=== PATIENT | female | born 2000 | race Caucasian/White ===

== ENCOUNTER 2021-12-27 06:51 | Day surgery (SDC) | payer BC, OTHER ==
[2021-12-27] MEDS ORDERED: Ringers Lactate 1,000 ML IV ONE (07:09)
[2021-12-27] MEDS ORDERED: OXYMETAZOLINE HCL 0.05% 15ML NAS ONE (07:13)
[2021-12-27] MEDS ORDERED: ACETAMINOPHEN 500 MG TAB ONE (07:31)
[2021-12-27] MEDS ORDERED: CELECOXIB 100 MG CAPSULE ONE (07:32)
[2021-12-27] MEDS ORDERED: dexAMETHasone 10 MG/ML VIAL ONE (07:43)
[2021-12-27] MEDS ORDERED: propofoL 200 MG/20 ML VIAL IV ONE (07:43)
[2021-12-27] MEDS ORDERED: LIDOCAINE 2% MPF 5 ML VIAL ONE (07:43)
[2021-12-27] MEDS ORDERED: FENTANYL CITR 100 MCG/2 ML ONE (07:43)
[2021-12-27] MEDS ORDERED: ONDANSETRON 4 MG/2 ML VIAL ONE (07:44)
[2021-12-27] MEDS ORDERED: KETOROLAC 30 MG/ML INJ ONE (07:44)
[2021-12-27] MEDS ORDERED: MIDAZOLAM HCL 2 MG/2 ML INJ ONE (07:44)
[2021-12-27 07:56] VITALS: O2SAT 100
[2021-12-27] MEDS: OFLOXACIN OPH 0.3%-5 ML BTL ONE ×2 (08:34→08:56)
[2021-12-27] MEDS ORDERED: MEPERIDINE HCL 25 MG/ML SYR ONE (09:32)
[2021-12-27 11:25] VITALS: BP 90/68; TEMP 96.5
--- NOTE | 2021-12-28 00:10 | OP ---
Date of Procedure: 12/27/2021 Surgeon: ANY VEGA Preoperative Diagnoses: 1.Chronic right ear otalgia. 2.Chronic right ear tinnitus. 3.Possible retained tympanostomy tube, involving right middle ear space. Postoperative Diagnoses: 1.Chronic right ear otalgia. 2.Chronic right ear tinnitus. 3.Possible retained tympanostomy tube, involving right middle ear space. Procedure: 1.Bilateral ear exam under general anesthesia with binocular microscopy. 2.Right myringotomy with middle ear exploration for retained tympanostomy tube. 3.Tympanic membrane repair with Gel-Foam patch. Anesthesia: General LMA anesthesia was administered. Specimens: None. Estimated Blood Loss: Scant, less than 1 mL. Findings: Moderate scarring, left tympanic membrane; moderate scarring, right tympanic membrane with no evidence of retained tympanostomy tube. Complications: None. Disposition: Stable. The patient tolerated the procedure well. Indication For Procedure: Patient is a pleasant 21-year-old female who presented to my office with a clicking and fluttering noise in the right ear that she has had for multiple months. She stated chucky t at 1 time, she had a tympanostomy tube placed and they told her that it fell into the middle ear sp marcela. Exam in the office revealed possible retained tympanostomy tube, but unable to ascertain 100% i f that was what we were visualizing. These were indications to bring the patient to operative suite for the above-mentioned procedures. She understood. All questions were answered. Risks versus bene fits and complications explained in detail and a consent form was signed, was placed in the chart. Description Of Procedure: Patient was transferred from the preoperative holding area to the operativ e suite by Department of Anesthesia, placed on the operating table supine, sedated, and an LMA was pl aced. A Zeiss microscope with auto-focus/zoom lens was utilized to examine the ears and perform the procedures. A 5 mm ear speculum was placed in the lateral end of the left ear canal and the canal wa s pink, firm without discharge and the ear drum demonstrated moderate scarring, most likely from prio r ear procedures. Patient has had multiple tympanostomy tubes placed as a child. I then removed the speculum and placed into the lateral ends of the right ear canal. The canal was pink, firm without discharge and the right ear drum demonstrated moderate scarring which was making visualization of the middle ear space difficult. Thus, I used a myringotomy knife to place 2 incisions in different areas of the eardrum, so that I could visualize into the middle ear cavity to see if I could see a retaine d tympanostomy tube. After exploring for approximately 10 to 15 minutes, I could not find any tympan ostomy tube. I also inserted a small #3 Pimentel suction into the middle ear cavity and there was tympa nostomy tube that was bit suctioned utilizing the suction. It was my thought at this point that eith er the scar tissue could be causing this noise or she could possibly have a stapedial or tensor tympa ni myoclonus, causing the fluttering sound. It was at this point that I decided to place Gel-Foam pa tches over both myringotomy sites and then I placed a small amount of Gel-Foam packing on top of thos e patches and then instilled approximately 4 to 5 drops of ofloxacin drops into the right ear canal a nd she was transferred back to Department of Anesthesia in stable condition. She will be discharged home on antibiotic ear drops to use twice daily and will follow up in 1 to 2 weeks or sooner if cici stock. JOANIE/BRIE Voice ID: [id number] Report ID: [id number]
== END 2021-12-27 10:24 | disposition home or self-care (01) ==
LOC: OR 06:51
PROVIDERS: ATTEND Otolaryngology Facial Plastic Surgery
PROC: 09P770Z Removal of Drainage Device from Right Tympanic Membrane, Via Natural or Artificial Opening (ICD-10-PCS; 2021-12-27)
PROC: 09P770Z Removal of Drainage Device from Right Tympanic Membrane, Via Natural or Artificial Opening (ICD-10-PCS; principal; 2021-12-27 08:30)
DX: H92.01 Otalgia, right ear (principal); H93.11 Tinnitus, right ear; Z20.822 Contact with and (suspected) exposure to COVID-19
CPT/HCPCS: 69610; 69440; U0003; J2704; J2250; J3010; J1100; J2175; J7120; J2405

== ENCOUNTER 2024-08-03 23:09 | Emergency (ER) | payer BC, OTHER ==
[2024-08-04] MEDS ORDERED: ONDANSETRON 4 MG/2 ML VIAL ONE (00:01)
[2024-08-04] MEDS ORDERED: NA CHLORIDE 0.9% 1,000 ML ONE (00:01)
[2024-08-04 00:38] LABS: Absolute Monocytes 0.2 K/uL (0.1-1.3); Absolute Neutrophil 1.9 K/uL (1.8-8.0); Basophils % 0.5 % (0-1.3); Eosinophils % 0.3 % (0-4.4); Hematocrit 35.2 % (36.0-45.0); Hemoglobin 11.7 g/dL (12.0-15.0); Lymphocytes % 31.5 % (15.3-44.8); MCH 29.4 pg (27.0-35.0); MCHC 33.4 g/dL (32.0-36.0); MCV 87.9 fL (80-100); MPV 9.8 fL (7.6-11.3); Monocytes % 5.6 % (3.3-12.3); Neutrophils % 62.1 % (41.7-73.7); Nucleated Red Blood Cells % 0.2 % (0-0); Platelets 152 thou/uL (152-406)
[2024-08-04] MEDS ORDERED: KETOROLAC 30 MG/ML INJ ONE (00:50)
[2024-08-04 00:56] LABS: SARS-CoV-2 Antigen CONTROL BLUE LINE VIS/BG OK; SARS-CoV-2 Antigen Rapid Res Negative (Negative)
[2024-08-04 00:58] LABS: Anion Gap 10.5 mEq/L (5.0-15.0); Potassium 3.5 mEq/L (3.5-5.1)
[2024-08-04] MEDS ORDERED: PROMETHAZINE INJ 25 MG/ML AMP ONE (01:10)
--- NOTE | 2024-08-04 01:19 | EDPHYS ---
Physician Documentation [facility] Name: Yamile Torres Age: 24 yrs Sex: Female : 2000 Arrival Date: 08/03/2024 Time: 23:09 Bed 8 Private MD: ED Physician Ranulfo Watson HPI: 08/03 23:33 This 24 yrs old Female presents to ER via Ambulatory with complaints of Flu Symptoms. sb4 23:33 flu like symptoms x 3 days. has been taking OTC meds without relief. reports cough, sb4 chest congestion, chest pain, nausea, vomiting. denies . endorses fever and chills. 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 Patient has never been vaccinated. - Infectious Disease History:: Denies. - Social history:: Smoking status: Patient denies any tobacco usage or history of. Patient uses alcohol, occasionally. ROS: 23:33 Cardiovascular: Negative for chest pain, palpitations, and edema, sb4 23:33 Constitutional: Positive for chills, fever, malaise, 23:33 Respiratory: Positive for cough, 23:33 Abdomen/GI: Positive for nausea and vomiting, 23:33 All other systems are negative, Exam: 23:33 Head/Face: Normocephalic, atraumatic. Eyes: Extra-ocular motions intact. Periorbital sb4 areas with no swelling, redness, or edema. ENT: Mucous membranes moist. Cardiovascular: Regular rate and rhythm with a normal S1 and S2. Respiratory: No increased work of breathing, no retractions or nasal flaring. Abdomen/GI: Soft, non-tender, no distension. Skin: Warm, dry with normal turgor. Normal color with no rashes, no lesions, and no evidence of cellulitis. 23:33 Constitutional: The patient appears alert, awake, obviously ill, 23:33 Respiratory: Breath sounds: are clear throughout, Vital Signs: 23:21 BP 109 / 82; Pulse 72; Resp 16; Temp 97.2(TE); Pulse Ox 100% on R/A; Weight 49.9 kg jb4 (R); Height 5 ft. 5 in. (R); Pain 3/10; 08/04 00:30 BP 123 / 68; Pulse 65; Resp 16; Pulse Ox 100% on R/A; dd2 01:27 BP 111 / 81; Pulse 76; Resp 15; Temp 97.6; Pulse Ox 100% on R/A; dd2 08/03 23:21 Body Mass Index 18.30 (49.90 kg, 165.1 cm) jb4 08/03 23:21 Pain Scale: Adult jb4 Rupinder Coma Score: 00:30 Eye Response: spontaneous(4). Motor Response: obeys commands(6). Verbal Response: dd2 oriented(5). Total: 15. MDM: 08/03 23:22 Medical Screening Exam initiated sb4 08/04 00:25 Differential diagnosis: viral Infection, bacterial infection, URI, bronchitis, sb4 pneumonia . 01:02 Data reviewed: vital signs, nurses notes, lab test result(s), radiologic studies, and sb4 as a result, I will discharge patient. Counseling: I had a detailed discussion with the patient and/or guardian regarding the historical points, exam findings, and any diagnostic results supporting the discharge/admit diagnosis, lab results, radiology results, the need for outpatient follow up, for definitive care, to return to the emergency department if symptoms worsen or persist or if there are any questions or concerns that arise at home. 08/03 23:23 Order name: SARS RAPID; Complete Time: 00:57 sb4 08/03 23:23 Order name: Flu; Complete Time: 00:57 sb4 08/03 23:23 Order name: Strep; Complete Time: 00:55 sb4 08/03 23:32 Order name: CBC with Diff; Complete Time: 00:40 sb4 08/03 23:32 Order name: BMP; Complete Time: 00:58 sb4 08/03 23:32 Order name: Test, Serum; Complete Time: 00:45 sb4 08/04 00:54 Order name: Throat Culture EDMS 08/03 23:23 Order name: Chest Pa And Lat (2 Views) XRAY sb4 08/03 23:32 Order name: IV Start; Complete Time: 00:18 sb4 08/04 00:40 Order name: PO challenge; Complete Time: 00:57 sb4 Administered Medications: 00:21 Drug: Ondansetron IVP 4 mg IVP once; over 2 minutes Route: IVP; Site: right antecubital;dd2 01:20 Follow up: Response: No adverse reaction ay 00:22 Drug: NS 0.9% IV 1000 ml IV at 1 bolus Per protocol; to be given as a bolus over 60 dd2 minutes Route: IV; Rate: 1 bolus; Site: right antecubital; 01:20 Follow up: IV Status: Completed infusion; IV Intake: 1000ml ay 00:53 Drug: Ketorolac IVP 15 mg IVP once Route: IVP; Site: right antecubital; ay 01:20 Follow up: Response: No adverse reaction ay 01:20 Drug: Promethazine IVP 12.5 mg IVP once Route: IVP; Site: right antecubital; ay 01:29 Follow up: Response: No adverse reaction dd2 01:36 Follow up: Response: No adverse reaction ay Disposition: 03:07 Co-signature as Attending Physician, Ranulfo Watson MD I agree with the assessment sp4 and plan of care. I reviewed the patient's care provided by the Advanced Practice Provider and agree with the diagnosis and treatment plan. Disposition Summary: 08/04/24 01:18 Discharge Ordered Notes: Location: Home sb4 Problem: new sb4 Symptoms: have improved sb4 Condition: Stable sb4 Diagnosis - Influenza B sb4 Followup: sb4 - With: Emergency Department - When: As needed - Reason: Trouble breathing, Worsening of condition Discharge Instructions: - Discharge Summary Sheet sb4 - Influenza, Adult, [id number] sb4 Forms: - Patient Portal Instructions sb4 - Leadership Thank You Letter sb4 Prescriptions: - ondansetron 4 mg Oral Tablet,disintegrating - take 1 tablet ORAL route every 8 hours As needed; 10 tablet; Refills: 0, sb4 Product Selection Permitted - Ibuprofen 600 mg Oral Tablet - take 1 tablet ORAL route every 6 hours As needed take with food; 30 tablet; sb4 Refills: 0, Product Selection Permitted - Tessalon Perles 100 mg Oral Capsule - take 1 capsule ORAL route every 8 hours As needed; 15 capsule; Refills: 0, sb4 Product Selection Permitted Signatures: Dispatcher [employer] Candido Novak, RN RN jb4 Renay Valles, OLENA PAKerryC sb4 Ranulfo Watson MD MD sp4 JB WESTFALL, RN RN dd2 Laura Carrasco RN RN ay
--- NOTE | 2024-08-04 01:19 | ER ---
Nurse's Notes [facility] Name: Yamile Torres Age: 24 yrs Sex: Female : 2000 Arrival Date: 08/03/2024 Time: 23:09 Bed 8 Private MD: Diagnosis: Influenza B Presentation: 08/03 23:21 Chief complaint: Patient states: I started having flu like symptoms on Friday and jb4 they haven't gotten any better. My chest hurts from coughing and I feel light headed. Coronavirus screen: At this time, the client does not indicate any symptoms associated with coronavirus-19. Ebola Screen: No symptoms or risks identified at this time. Initial Sepsis Screen: Does the patient meet any 2 criteria? No. Patient's initial sepsis screen is negative. Does the patient have a suspected source of infection? No. Patient's initial sepsis screen is negative. Risk Assessment: Do you want to hurt yourself or someone else? Patient reports no desire to harm self or others. Onset of symptoms was July 31, 2024. Transition of care: patient was not received from another setting of care. 23:21 Method Of Arrival: Ambulatory jb4 23:21 Acuity: MARLYN 4 jb4 Triage Assessment: 23:23 General: Appears in no apparent distress. comfortable, Behavior is calm, cooperative, jb4 appropriate for age. Pain: Complains of pain in chest, throat Pain does not radiate. Pain currently is 3 out of 10 on a pain scale. Quality of pain is described as aching. Neuro: Level of Consciousness is awake, alert, obeys commands, Oriented to person, place, time, situation. Cardiovascular: Patient's skin is warm and dry. Respiratory: Airway is patent Respiratory effort is even, unlabored, Respiratory pattern is regular, symmetrical. Derm: Skin is intact, Skin is pink, warm \T\ dry. normal. Musculoskeletal: Circulation, motion, and sensation intact. Range of motion: intact in all extremities. 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 Patient has never been vaccinated. - Infectious Disease History:: Denies. - Social history:: Smoking status: Patient denies any tobacco usage or history of. Patient uses alcohol, occasionally. Screenin/08 00:30 [facility] ED Fall Risk Assessment (Adult) History of falling in the last 3 months, dd2 including since admission No falls in past 3 months (0 pts) Confusion or Disorientation No (0 pts) Intoxicated or Sedated No (0 pts) Impaired Gait No (0 pts) Mobility Assist Device Used No (0 pt) Altered Elimination No (0 pt) Score/Fall Risk Level 0 - 2 = Low Risk Oriented to surroundings, Maintained a safe environment, Educated pt \T\ family on fall prevention, incl call for assistance when getting out of bed, Assessed \T\ reinforced patient's understanding of fall precautions, Hourly rounding (assess needs \T\ fall precautionary measures) done. Abuse screen: Denies threats or abuse. Nutritional screening: No deficits noted. Tuberculosis screening: No symptoms or risk factors identified. Assessment: 00:30 General: Appears in no apparent distress. uncomfortable, Behavior is calm, cooperative, dd2 appropriate for age. Pain: Complains of pain in Generalized bodyaches Pain currently is 2 out of 10 on a pain scale. Neuro: Hollis Agitation-Sedation Scale (RASS): 0 - Alert and Calm Level of Consciousness is awake, alert, obeys commands, Oriented to person, place, time, situation, Appropriate for age. Cardiovascular: Patient's skin is warm and dry. Respiratory: Reports cough that is non-productive, Airway is patent Respiratory effort is even, unlabored, Respiratory pattern is regular, symmetrical, Breath sounds are clear bilaterally. GI: Abdomen is non-distended, Bowel sounds present X 4 quads. Abd is soft and non tender X 4 quads. Reports nausea. : No deficits noted. No signs and/or symptoms were reported regarding the genitourinary system. EENT: Throat is clear Reports pain when swallowing. Derm: No deficits noted. No signs and/or symptoms reported regarding the dermatologic system. Musculoskeletal: No deficits noted. No signs and/or symptoms reported regarding the musculoskeletal system. Circulation, motion, and sensation intact. Range of motion: intact in all extremities. 01:27 Reassessment: Patient and/or family updated on plan of care and expected duration. Pain dd2 level reassessed. Patient is alert, oriented x 3, equal unlabored respirations, skin warm/dry/pink. Patient denies pain at this time. Patient states feeling better. Vital Signs: 08/03 23:21 BP 109 / 82; Pulse 72; Resp 16; Temp 97.2(TE); Pulse Ox 100% on R/A; Weight 49.9 kg jb4 (R); Height 5 ft. 5 in. (R); Pain 10/04; 08/04 00:30 BP 123 / 68; Pulse 65; Resp 16; Pulse Ox 100% on R/A; dd2 01:27 BP 111 / 81; Pulse 76; Resp 15; Temp 97.6; Pulse Ox 100% on R/A; dd2 08/03 23:21 Body Mass Index 18.30 (49.90 kg, 165.1 cm) jb4 08/03 23:21 Pain Scale: Adult jb4 Rupinder Coma Score: 00:30 Eye Response: spontaneous(4). Motor Response: obeys commands(6). Verbal Response: dd2 oriented(5). Total: 15. ED Course: 08/03 23:17 Patient arrived in ED. ra3 23:18 Renay Valles PA-C is PHCP. sb4 23:18 Ranulfo Watson MD is Attending Physician. sb4 23:23 Triage completed. jb4 23:23 Arm band placed on right wrist. jb4 23:38 Chest Pa And Lat (2 Views) XRAY In Process Unspecified. EDMS 23:58 JB WESTFALL, RN is Primary Nurse. dd2 23:58 Strep Sent. dd2 23:58 Flu Sent. dd2 23:58 SARS RAPID Sent. dd2 08/04 00:10 Inserted saline lock: 20 gauge in right antecubital area, using aseptic technique. sa1 Blood collected. Flushed with 10 mL NS. 00:10 Initial lab(s) drawn, by me, sent to lab. sa1 00:23 No provider procedures requiring assistance completed. Patient maintains SpO2 dd2 saturation greater than 95% on room air. 00:30 Patient has correct armband on for positive identification. Bed in low position. Call dd2 light in reach. Side rails up X2. Client placed on continuous cardiac and pulse oximetry monitoring. NIBP monitoring applied. Door closed. Noise minimized. Warm blanket given. Pillow given. Verbal reassurance given. 01:27 Provided Education on: D/C EDUCATION. dd2 01:27 IV discontinued, intact, bleeding controlled, No redness/swelling at site. Pressure dd2 dressing applied. Administered Medications: 00:21 Drug: Ondansetron IVP 4 mg IVP once; over 2 minutes Route: IVP; Site: right antecubital;dd2 01:20 Follow up: Response: No adverse reaction ay 00:22 Drug: NS 0.9% IV 1000 ml IV at 1 bolus Per protocol; to be given as a bolus over 60 dd2 minutes Route: IV; Rate: 1 bolus; Site: right antecubital; 01:20 Follow up: IV Status: Completed infusion; IV Intake: 1000ml ay 00:53 Drug: Ketorolac IVP 15 mg IVP once Route: IVP; Site: right antecubital; ay 01:20 Follow up: Response: No adverse reaction ay 01:20 Drug: Promethazine IVP 12.5 mg IVP once Route: IVP; Site: right antecubital; ay 01:29 Follow up: Response: No adverse reaction dd2 01:36 Follow up: Response: No adverse reaction ay Medication: 00:30 VIS not applicable for this client. dd2 Intake: 01:20 IV: 1000ml; Total: 1000ml. ay Outcome: 01:18 Discharge ordered by . sb4 01:27 Discharged to home ambulatory, dd2 01:27 Condition: stable 01:27 Discharge instructions given to patient, Instructed on discharge instructions, follow up and referral plans. medication usage, Demonstrated understanding of instructions, follow-up care, medications, Prescriptions given X 3, 01:29 Patient left the ED. dd2 Signatures: Dispatcher [employer] EDMS Candido Lyons RN RN Renay Winston PAShahbaz PA-C [email or web address] Clare Urbina Sultan 1 JB WESTFALL RN RN dd2 Laura Carrasco RN RN ay
[2024-08-04 01:51] VITALS: O2SAT 100
[2024-08-04 01:54] VITALS: BP 111/81; TEMP 97.6
--- NOTE | 2024-08-04 06:20 | RAD REPORT ---
EXAM: XR Chest 2 Views AP PA Lateral HISTORY: Congestion;Cough COMPARISON: None TECHNIQUE: Chest 2 Views AP PA Lateral FINDINGS: Trachea midline. Heart size and pulmonary vessels within normal limits. Lungs clear without evidence of consolidation, mass, or significant pulmonary edema. No significant pleural effusion or pneumothorax. Mild symmetric bilateral lower lungs/chest density most likely represents overlying breast/chest wall attenuation artifact. Bones unremarkable. IMPRESSION: Normal chest radiograph. Electronically signed by: Gilberto Salgado MD 08/03/2024 11:54 PM [facility] Due to temporary technical issues with the [employer] reporting system, reports are being magdaleno d by the in-house radiologist without review as a courtesy to ensure prompt reporting the interpreting radiologist is fully responsible for the content of the report. Transcribed Date/Time: 08/04/2024 6:19 AM
== END 2024-08-04 01:29 | disposition home or self-care (01) ==
LOC: ER 23:09
DX: J10.1 Influenza due to other identified influenza virus with other respiratory manifestations (principal); Z11.52 Encounter for screening for COVID-19
CPT/HCPCS: 96361; 87070; 85025; 80048; 36415; 84703; 87081; 87804 ×2; 71046; 96375; 96374; 99284; 87811; J2550; J2405; J7030